=== PATIENT | male | born 1995 | race American Indian/Alaskan Native ===

== ENCOUNTER 2020-10-05 12:46 | Emergency (ER) | payer SELFPAY ==
[2020-10-05 14:24] VITALS: BP 131/81
--- NOTE | 2020-10-05 16:32 | Emergency Department Report ---
Chief Complaint: Skin/Abscess/Foreign Body Stated Complaint: THINK I HAVE CLOT IN PELVIS Time Seen by Provider: 10/05/20 16:25 - HPI History of Present Illness: 25-year-old male patient presents to the emergency department with complaints of right inguinal swelling starting two days ago. Patient states he began to notice the swollen area after he lifted something heavy at work and rested the object on his pelvis. After he stood up, he noticed a "bump." Past medical history is unremarkable. No history of abdominal surgeries. Last bowel movement was today. Denies fever, chills, abdominal pain, nausea, vomiting, diarrhea, constipation, black/bloody stools, testicular pain/swelling. Denies all other complaints at this time. - ROS Review of Systems: GENERAL: Negative for fever. CARDIOVASCULAR: Negative for chest pain. PULMONARY: Negative for shortness of breath. GASTROINTESTINAL: Negative for abdominal pain. MUSCULOSKELETAL: Positive for groin swelling NEUROLOGICAL: Negative for headache. INTEGUMENTARY: Negative for rash. - Exam Vital Signs: Vital Signs 10/05/20 14:23 Temperature 98.6 F Pulse Rate 60 Respiratory 16 Rate Blood Pressure 131/81 O2 Sat by Pulse 100 Oximetry Physical Exam: General: Awake, appropriately interactive, no acute distress. Neck: Supple. Full range of motion intact. Cardiovascular: Normal peripheral perfusion. Pulmonary: No respiratory distress. Patient is speaking normally without use of accessory muscles. Skin: No apparent rashes or lesions. Neurological: No facial asymmetry. Speech is clear. Follows commands. Patient is alert and oriented. Musculoskeletal: Right inguinal tenderness with small hernia present. Hernia protrudes with Valsalva maneuver and reduces easily at rest. Psych: Cooperative. Appropriate mood and affect. MSE screening note: Focused history and physical exam performed. Due to findings the following was ordered: ED Medical Decision Making - Medical Decision Making Patient presents to the emergency department with signs/symptoms suggestive of right inguinal hernia. He is afebrile, hemodynamically stable, no testicular pain/swelling, no nausea/vomiting/diarrhea/constipation, no abdominal tenderness. No clinical evidence to suggest incarcerated and/or strangulated hernia warranting further diagnostic work-up on an emergent basis at this time. Patient will be discharged home with referral to general surgeon for close outpatient follow-up. Patient expressed understanding and is agreeable to plan of care. Lifestyle modifications discussed. Strict return precautions provided. History, exam, diagnostic testing, and current condition do not suggest worrisome pathology to warrant further testing, continued ED treatment, admission, or surgical evaluation at this point. Given the low probability of a significant medical illness, it would be more likely to result in harm than benefit to perform further testing at this stage. Discussed findings, presumptive diagnosis, need for follow-up and specific signs/symptoms that should prompt immediate return to the emergency department. Instructions were explained in detail to the patient in addition to giving written discharge information. Patient expressed understanding and was given the opportunity to ask questions, all of which were satisfactorily answered prior to discharge home. ED Disposition for MSE Clinical Impression: Right inguinal hernia Disposition: DC-01 TO HOME OR SELFCARE Is pt being admited?: No Does the pt Need Aspirin: No Condition: Stable Instructions: Inguinal Hernia, Adult, [id number] Additional Instructions: Take Tylenol every 4 hours and Motrin every 8 hours as needed for pain. Avoid heavy lifting and squatting, which may worsen your symptoms. Increase your dietary fiber intake - straining to have a bowel movement (i.e. constipation) may worsen your symptoms. Follow-up with Dr. Branch, general surgeon, for further evaluation and definitive management. Call tomorrow to schedule an appointment. See referral information below. Return to the emergency department immediately for new or worsening symptoms. Specifically, return to the emergency department immediately for fever, abdominal pain, vomiting, constipation, black/bloody stools, or any other concerns. Referrals: ALONZO BRANCH MD [Staff Physician] - 3-5 Days Forms: Work/School Release Form(ED) Time of Disposition: 16:34
== END 2020-10-05 17:11 | disposition home or self-care (01) ==
LOC: ED 12:46
DX: K40.90 Unilateral inguinal hernia, without obstruction or gangrene, not specified as recurrent (principal)
CPT/HCPCS: 99281